=== PATIENT | female | born 1975 | race Caucasian/White ===

== ENCOUNTER → 2020-01-02 14:59 | Outpatient (CLI) | payer SELFPAY ==
[2020-01-02 17:13] LABS: Rheumatoid Factor < 8.6 IU/mL (<12.0)
[2020-01-02 17:33] LABS: TSH w/ Reflex to FT4 0.91 uIU/mL (0.47-4.68)
[2020-01-06 12:22] LABS: CCP Antibody (IgG) < 16 Units (< 20)
== END ==
PROVIDERS: Family Provider Family Medicine; PCP Family Medicine; Referring Provider Family Medicine; Visit Provider Family Medicine
DX: E03.9 Hypothyroidism, unspecified (principal); M65.4 Radial styloid tenosynovitis [de Quervain]
CPT/HCPCS: 36415; 84443; 86200; 86430

== ENCOUNTER → 2020-06-15 12:22 | Outpatient (CLI) | payer SELFPAY ==
[2020-06-15 13:17] LABS: Add Manual Diff / Slide Review NO; Basophils Absolute Auto 0 /uL (0-100); Basophils Percent Auto 0.5 % (0-2); Eosinophils Absolute Auto 100 /uL (0-450); Eosinophils Percent Auto 1.5 % (2-4); Hematocrit 39.3 % (36-46); Hemoglobin 13.1 g/dL (12.0-16.0); Lymphocytes Absolute Auto 1900 /uL (1100-4500); Lymphocytes Percent Auto 24.6 % (25-40); Mean Corpuscular HGB Conc 33.3 % (30-36); Mean Corpuscular Hemoglobin 29.7 PG (26-34); Mean Corpuscular Volume 89.2 fL (80-100); Monocytes Absolute Auto 500 /uL (0-900); Monocytes Percent Auto 6.2 % (3-14); Neutrophils Absolute Auto 5100 /uL (1500-7000); Neutrophils Percent Auto 67.2 % (50-75); Platelet Count 264 X10^3/uL (150-400); Red Blood Cell Count 4.41 X10^6/uL (4.0-5.2); Red Cell Distribution Width 13.3 % (11.6-14.8); White Blood Cell Count 7.6 X10^3/uL (4.5-11.0)
[2020-06-15 13:35] LABS: C-Reactive Protein Quant < 0.5 mg/dL (<1.0); Rheumatoid Factor < 8.6 IU/mL (<12.0)
[2020-06-15 13:42] LABS: Erythrocyte Sedimentation Rate 4 MM/HR (0-20)
[2020-06-17 15:10] LABS: ANA Screen, IFA Negative (.)
== END ==
PROVIDERS: Family Provider Family Medicine; PCP Family Medicine; Referring Provider Orthopaedic Surgery; Visit Provider Orthopaedic Surgery
DX: M25.549 Pain in joints of unspecified hand (principal)
CPT/HCPCS: 36415; 85025; 85651; 86038; 86140; 86430

== ENCOUNTER → 2020-10-21 15:30 | Outpatient (CLI) | payer SELFPAY ==
--- NOTE | 2020-10-21 15:47 | DI.RAD.S_ITS ---
PROCEDURE: XR HAND RT MIN 3V INDICATIONS: mcp stiffness and pain TECHNIQUE: 3 views of the hand(s) acquired. COMPARISON: None. FINDINGS: Bones: No fractures or dislocations. Carpal bones are normally aligned. No suspicious bony lesions. No gross bony erosion is seen. Mild osteoarthritic changes are noted along radial aspect of right wrist. Soft tissues: No suspicious soft tissue calcifications. IMPRESSION: No right hand fracture or dislocation. Mild osteoarthritic changes along radial aspect of right wrist. No gross bony erosive changes. Dictated by: Cosme Palacio M.D. on 10/21/2020 at 17:18 Approved by: Cosme Palacio M.D. on 10/21/2020 at 17:19
--- NOTE | 2020-10-21 15:47 | DI.RAD.S_ITS ---
PROCEDURE: XR HAND LT MIN 3V INDICATIONS: mcp stiffness and pain TECHNIQUE: 3 views of the hand(s) acquired. COMPARISON: [facility], CR, XR HAND RT MIN 3V, 10/21/2020, 15:54. FINDINGS: Bones: No fractures or dislocations. Mild osteoarthritic changes along radial aspect of left wrist is seen. No gross bony erosive changes are seen. Carpal bones are normally aligned. No suspicious bony lesions. Soft tissues: No suspicious soft tissue calcifications. IMPRESSION: Mild left wrist joint osteoarthritis. No fracture or dislocation. No gross bony erosion. Dictated by: Cosme Palacio M.D. on 10/21/2020 at 17:20 Approved by: Cosme Palacio M.D. on 10/21/2020 at 17:20
== END ==
PROVIDERS: Family Provider Family Medicine; PCP Family Medicine; Referring Provider Family Medicine; Visit Provider Family Medicine
DX: M25.649 Stiffness of unspecified hand, not elsewhere classified (principal); M25.541 Pain in joints of right hand; M25.542 Pain in joints of left hand; M19.042 Primary osteoarthritis, left hand
CPT/HCPCS: 73130

== ENCOUNTER → 2021-03-16 10:06 | Outpatient (CLI) | payer OTHER, SELFPAY ==
[2021-03-16 10:55] LABS: Add Manual Diff / Slide Review NO; Basophils Absolute Auto 0 /uL (0-100); Basophils Percent Auto 0.4 % (0-2); Eosinophils Absolute Auto 0 /uL (0-450); Eosinophils Percent Auto 0.3 % (2-4); Hematocrit 40.7 % (36-46); Hemoglobin 13.8 g/dL (12.0-16.0); Lymphocytes Absolute Auto 1000 /uL (1100-4500); Mean Corpuscular HGB Conc 33.9 % (30-36); Mean Corpuscular Hemoglobin 30.5 PG (26-34); Mean Corpuscular Volume 90.1 fL (80-100); Monocytes Absolute Auto 400 /uL (0-900); Monocytes Percent Auto 5.1 % (3-14); Neutrophils Absolute Auto 5500 /uL (1500-7000); Neutrophils Percent Auto 80.2 % (50-75); Platelet Count 307 X10^3/uL (150-400); Red Blood Cell Count 4.52 X10^6/uL (4.0-5.2); Red Cell Distribution Width 13.2 % (11.6-14.8); White Blood Cell Count 6.9 X10^3/uL (4.5-11.0)
[2021-03-16 11:01] LABS: Prothrombin Time 11.6 SECONDS (10.1-12.7)
[2021-03-16 11:12] LABS: Alanine Aminotransferase 17 IU/L (<35); Albumin 4.7 g/dL (3.5-5.0); Albumin Globulin Ratio 1.6 (1.0-2.8); Alkaline Phosphatase 38 U/L (38-126); Aspartate Aminotransferase 27 IU/L (14-36); BUN Creatinine Ratio 16.7 (6-22); Blood Urea Nitrogen 12 mg/dL (7-17); Calcium 9.9 mg/dL (8.4-10.2); Carbon Dioxide 27 mmol/L (22-32); Chloride 101 mmol/L (98-107); Estimated Glomerular Filt Rate > 60.0 mL/min (>60); Glucose 92 mg/dL (70-100); HEMOLYSIS < 15 (0-50); Sodium 138 mmol/L (137-145); Total Protein 7.7 g/dL (6.3-8.2)
[2021-03-16 12:43] LABS: Urine Chlamydia NOT DETECTED; Urine N gonorrhoeae NOT DETECTED
[2021-03-17 06:39] LABS: HSV 2 IGG AB < 0.91 index (0.00-0.90); RPR Screen Non Reactive (Non Reactive)
[2021-03-17 15:51] LABS: Hepatitis B Surface Antigen NEGATIVE s/c (NEGATIVE)
[2021-03-17 16:05] LABS: HIV 1 & 2 Ab/Ag 4th Gen Combo NEGATIVE (NEGATIVE); Hep C Virus Ab w/Reflex Quant NEGATIVE s/c (NEGATIVE)
[2021-03-17 19:38] LABS: HSV I/II IgM <0.91 Ratio (0.00-0.90)
== END ==
PROVIDERS: Family Provider Family Medicine; PCP Family Medicine; Referring Provider Family Medicine; Visit Provider Family Medicine
DX: A64 Unspecified sexually transmitted disease (principal); R04.0 Epistaxis
CPT/HCPCS: 36415; 80053; 85025; 85610; 86592; 86694; 86695; 86696; 86803; 87340; 87389; 87491; 87591

== ENCOUNTER → 2021-05-13 16:09 | Outpatient (CLI) | payer OTHER, SELFPAY ==
[2021-05-15 10:16] LABS: Hepatitis B Core Antibody Negative (Negative); Hepatitis B Surf Ab Qualitativ Reactive (.)
[2021-05-16 16:21] LABS: HIV 1 & 2 Ab/Ag 4th Gen Combo NEGATIVE (NEGATIVE); Hep C Virus Ab w/Reflex Quant NEGATIVE s/c (NEGATIVE); Hepatitis B Surface Antigen NEGATIVE s/c (NEGATIVE)
== END ==
PROVIDERS: Family Provider Family Medicine; PCP Family Medicine; Referring Provider Internal Medicine Rheumatology; Visit Provider Internal Medicine Rheumatology
DX: L94.0 Localized scleroderma [morphea] (principal)
CPT/HCPCS: 36415; 86704; 86706; 86803; 87340; 87389

== ENCOUNTER → 2021-06-13 12:11 | Outpatient (CLI) | payer OTHER, SELFPAY ==
[2021-06-13 13:50] LABS: Add Manual Diff / Slide Review NO; Basophils Absolute Auto 0 /uL (0-100); Basophils Percent Auto 0.5 % (0-2); Eosinophils Absolute Auto 0 /uL (0-450); Eosinophils Percent Auto 0.9 % (2-4); Hematocrit 36.2 % (36-46); Hemoglobin 12.3 g/dL (12.0-16.0); Lymphocytes Absolute Auto 1300 /uL (1100-4500); Lymphocytes Percent Auto 24.6 % (25-40); Mean Corpuscular HGB Conc 33.9 % (30-36); Mean Corpuscular Hemoglobin 30.8 PG (26-34); Mean Corpuscular Volume 91.1 fL (80-100); Monocytes Absolute Auto 400 /uL (0-900); Monocytes Percent Auto 7.4 % (3-14); Neutrophils Absolute Auto 3400 /uL (1500-7000); Neutrophils Percent Auto 66.6 % (50-75); Platelet Count 290 X10^3/uL (150-400); Red Blood Cell Count 3.98 X10^6/uL (4.0-5.2); Red Cell Distribution Width 13.2 % (11.6-14.8); White Blood Cell Count 5.1 X10^3/uL (4.5-11.0)
[2021-06-13 14:17] LABS: Alanine Aminotransferase 13 IU/L (<35); Albumin 4.3 g/dL (3.5-5.0); Albumin Globulin Ratio 1.5 (1.0-2.8); Alkaline Phosphatase 32 U/L (38-126); Aspartate Aminotransferase 25 IU/L (14-36); BUN Creatinine Ratio 12.1 (6-22); Bilirubin Total 0.8 mg/dL (0.2-1.3); Blood Urea Nitrogen 7 mg/dL (7-17); Calcium 9.4 mg/dL (8.4-10.2); Carbon Dioxide 28 mmol/L (22-32); Chloride 102 mmol/L (98-107); Estimated Glomerular Filt Rate > 60.0 mL/min (>60); Globulin 2.8 g/dL (1.7-4.1); Glucose 97 mg/dL (70-100); HEMOLYSIS < 15 (0-50); Potassium 4.4 mmol/L (3.4-5.1); Sodium 137 mmol/L (137-145); Total Protein 7.1 g/dL (6.3-8.2)
== END ==
PROVIDERS: Family Provider Family Medicine; PCP Family Medicine; Referring Provider Internal Medicine Rheumatology; Visit Provider Internal Medicine Rheumatology
DX: L94.0 Localized scleroderma [morphea] (principal)
CPT/HCPCS: 36415; 80053; 85025

== ENCOUNTER → 2021-06-18 09:47 | Outpatient (CLI) | payer OTHER, SELFPAY ==
[2021-06-18 11:11] LABS: COVID19 - ADMIT (NP swab/PCR) Negative (Negative)
== END ==
PROVIDERS: Family Provider Family Medicine; PCP Family Medicine; Referring Provider Physician Assistant; Visit Provider Physician Assistant
DX: Z20.822 Contact with and (suspected) exposure to COVID-19 (principal)
CPT/HCPCS: U0003

== ENCOUNTER 2021-06-27 20:16 | Emergency (ER) | payer OTHER, SELFPAY ==
[2021-06-27] VITALS (17 sets, daily range): BP systolic 96–117; BP diastolic 62–83; PULSE 49–73; RESP 11–22; TEMP 36.6; O2SAT 96–100
--- NOTE | 2021-06-27 20:19 | ED.PSYCH ---
HPI - Psych <Johnathan Campbell DO - Last Filed: 07/07/21 23:35> General Chief Complaint: Psychiatric Symptoms Stated Complaint: SI Time Seen by Provider: 06/27/21 20:18 History of Present Illness HPI Narrative: 45-year-old female nonsmoker with history of scleroderma presents by EMS for evaluation of an intentional overdose about 1 hour prior to arrival. She states that due to marital issues, and for the 1st time ever, she attempted to hurt herself with the intention of committing suicide by consuming a bottle of wine on along with 20 hydrocodone. She was prescribed about 40 in October. She denies any other coingestion since states she did this all at the same time at about 7 or 715pm tonight. Initially she was refusing an IV or charcoal but prior to her arrival she had consumed about 3/4 of a bottle of charcoal by her arrival. Related Data Home Medications Medication Instructions Recorded Confirmed hydroxychloroquine 200 mg tablet 200 mg PO DAILY tab 01/31/21 06/28/21 folic acid 1 mg tablet 06/28/21 Previous Rx's Medication Instructions Recorded methylphenidate HCl 5 mg tablet 10 mg PO BID #120 tab 06/27/21 Allergies Allergy/AdvReac Type Severity Reaction Status Date / Time No Known Drug Allergies Allergy Verified 04/20/21 08:53 Review of Systems <DO King Connell Last Filed: 07/07/21 23:35> Review of Systems Narrative: GENERAL: Denies chills, fatigue, malaise, fever, sweats. HEENT: Denies sinus pain, ear pain, sore throat, difficulty swallowing, dizziness. RESPIRATORY: Denies dyspnea, cough, wheezing, hemoptysis, sputum. CARDIOVASCULAR: Denies chest pain, palpitations, orthopnea, edema, GASTROINTESTINAL: Denies nausea, vomiting, abdominal pain, diarrhea, constipation, melena. : Denies dysuria, frequency, incontinence, hematuria, urinary retention. MUSCULOSKELETAL: denies weakness, joint pain, or bony pain SKIN: Denies rash, skin lesions, or other NEUROLOGIC: Denies weakness, headache, numbness, change in speech, confusion, seizures, incoordination. PSYCHIATRIC: See HPI 12 point review of systems is negative except for those stated above Patient History <DO King Connell Last Filed: 07/07/21 23:35> Medical History Abnormal glandular Pap smear of vagina (~2004) Attention deficit disorder without hyperactivity (10/12/11) Back stiffness Carpal tunnel syndrome, left De Quervain's tenosynovitis, right Generalized morphea Subdural hemorrhage (12/17/12) Surgical History History of oral surgery Family History Father Cancer Grandmother Lung cancer Mother Osteoporosis Social History Smoking Status: Never smoker alcohol intake: current substance use type: does not use Smoking Status: Never smoker Exam <Johnathan Campbell DO - Last Filed: 07/07/21 23:35> Narrative Exam Narrative: GENERAL: [45] year old patient appears stated age. Well-developed patient, in mild distress. GCS 15, guarding her airway. Charcoal in her hands on on her lips HEAD: Atraumatic. Normocephalic. EYES: Pupils equal round and reactive. Extraocular motions intact. No scleral icterus. No injection or drainage. ENT: Nose without bleeding, purulent drainage. Throat without erythema, tonsillar hypertrophy or exudate. Airway patent. NECK: Trachea midline. Non tender CARDIOVASCULAR: Regular rate and rhythm without murmurs, gallops, or rubs. RESPIRATORY: Clear to auscultation. Breath sounds equal bilaterally. No wheezes, rales, or rhonchi. GASTROINTESTINAL: Abdomen soft, non-tender, nondistended. EXTREMITIES: No edema or joint tenderness. BACK: Nontender without deformity or crepitance. No flank tenderness. NEURO: AOx3. SKIN: No rash or erythema of visible areas Initial Vital Signs Initial Vital Signs: Vital Signs Pulse Rate 73 06/27/21 20:17 Respiratory Rate 22 06/27/21 20:17 Pulse Oximetry 98 06/27/21 20:17 <Olman Mejía DO - Last Filed: 06/28/21 18:57> Initial Vital Signs Initial Vital Signs: Vital Signs Pulse Rate 73 06/27/21 20:17 Respiratory Rate 22 06/27/21 20:17 Pulse Oximetry 98 06/27/21 20:17 Course <Johnathan Campbell, DO - Last Filed: 07/07/21 23:35> Orders Ordered: Discontinued Medications Sodium Chloride (Normal Saline 0.9%) 1,000 mls @ 150 mls/hr IV CONT REJI Last Infusion: 06/27/21 22:58 Dose: 0 mls/hr Documented by: Admin: 06/27/21 20:38 Dose: 150 mls/hr Documented by: WILLI Vital Signs Vital signs: Vital Signs - 8 hr 06/28/21 11:00 06/28/21 11:15 06/28/21 11:30 Pulse Rate 66 56 L 56 L Respiratory Rate 20 19 19 Pulse Oximetry 99 100 100 06/28/21 11:45 06/28/21 12:00 06/28/21 12:15 Pulse Rate 61 64 70 Respiratory Rate 20 19 14 Pulse Oximetry 100 99 99 06/28/21 12:30 06/28/21 12:45 06/28/21 13:00 Pulse Rate 67 66 65 Respiratory Rate 14 14 29 H Pulse Oximetry 100 100 100 06/28/21 13:15 06/28/21 13:30 06/28/21 13:45 Pulse Rate 68 70 68 Respiratory Rate 19 20 23 Pulse Oximetry 100 100 <Olman Mejía, DO - Last Filed: 06/28/21 18:57> Orders Ordered: Discontinued Medications Sodium Chloride (Normal Saline 0.9%) 1,000 mls @ 150 mls/hr IV CONT REJI Last Infusion: 06/27/21 22:58 Dose: 0 mls/hr Documented by: Admin: 06/27/21 20:38 Dose: 150 mls/hr Documented by: WILLI Vital Signs Vital signs: Vital Signs - 8 hr 06/28/21 11:00 06/28/21 11:15 06/28/21 11:30 Pulse Rate 66 56 L 56 L Respiratory Rate 20 19 19 Pulse Oximetry 99 100 100 06/28/21 11:45 06/28/21 12:00 06/28/21 12:15 Pulse Rate 61 64 70 Respiratory Rate 20 19 14 Pulse Oximetry 100 99 99 06/28/21 12:30 06/28/21 12:45 06/28/21 13:00 Pulse Rate 67 66 65 Respiratory Rate 14 14 29 H Pulse Oximetry 100 100 100 06/28/21 13:15 06/28/21 13:30 06/28/21 13:45 Pulse Rate 68 70 68 Respiratory Rate 19 20 23 Pulse Oximetry 100 100 MDM - Psych <Johnathan Campbell DO - Last Filed: 07/07/21 23:35> Lab Data Result diagrams: 06/27/21 20:30 06/27/21 23:15 Labs: Lab Results 06/27/21 06/27/21 06/27/21 Range/Units 20:30 20:30 20:30 WBC 5.9 (4.5-11.0) X10^3/uL RBC 3.80 L (4.0-5.2) X10^6/uL Hgb 11.8 L (12.0-16.0) g/dL Hct 34.9 L (36-46) % MCV 91.8 (80-100) fL MCH 30.9 (26-34) PG MCHC 33.7 (30-36) % RDW 13.4 (11.6-14.8) % Plt Count 244 (150-400) X10^3/uL Neut % (Auto) 65.5 (50-75) % Lymph % (Auto) 26.7 (25-40) % Reeves % (Auto) 5.6 (3-14) % Eos % (Auto) 1.7 L (2-4) % Baso % (Auto) 0.5 (0-2) % Neut # (Auto) 3900 (6593-2417) /uL Lymph # (Auto) 1600 (8111-7414) /uL Reeves # (Auto) 300 (0-900) /uL Eos # (Auto) 100 (0-450) /uL Baso # (Auto) 0 (0-100) /uL Sodium 139 (137-145) mmol/L Potassium 3.6 (3.4-5.1) mmol/L Chloride 106 (98-107) mmol/L Carbon Dioxide 24 (22-32) mmol/L BUN 6 L (7-17) mg/dL Creatinine 0.55 (0.52-1.04) mg/dL Estimated GFR > 60.0 (>60) mL/min BUN/Creatinine Ratio 10.9 (6-22) Glucose 96 (70-100) mg/dL Lactate 1.9 (0.7-2.1) mmol/L Calcium 8.9 (8.4-10.2) mg/dL Magnesium (1.6-2.3) mg/dL Total Bilirubin 0.6 (0.2-1.3) mg/dL Conjugated Bilirubin 0.0 (0.0-0.3) md/dL Unconjugated Bilirubin 0.6 (0.0-1.1) mg/dL AST 25 (14-36) IU/L ALT 14 (<35) IU/L Alkaline Phosphatase 31 L (38-126) U/L Total Creatine Kinase (30-135) U/L CK-MB (CK-2) CK-MB (CK-2) Rel Index Troponin I (0.01-0.034) ng/mL Total Protein 6.8 (6.3-8.2) g/dL Albumin 4.1 (3.5-5.0) g/dL Globulin 2.7 (1.7-4.1) g/dL Albumin/Globulin Ratio 1.5 (1.0-2.8) TSH (0.47-4.68) uIU/mL Free T4 (0.78-2.19) ng/dL Urine Color Urine Appearance Urine pH (4.5-8.0) Ur Specific [place] (1.000-1.035) Urine Protein (Negative) Urine Glucose (UA) (Negative) g/dL Urine Ketones (NEGATIVE) Urine Occult Blood (Negative) Urine Nitrate (Negative) Urine Bilirubin (NEGATIVE) Urine Urobilinogen (0.2) E.U./dL Ur Leukocyte Esterase (NEGATIVE) Urine RBC (0-5/HPF) Urine WBC (0-5/HPF) Urine Bacteria (None) Ur Culture Indicated? Salicylates < 1.0 (<20) mg/dL U Opiates 300ng/mL cut (Negative) Ur Oxycodone Screen (Negative) Urine Methadone Screen (Negative) Acetaminophen 37 H (10-30) ug/mL Ur Barbiturates Screen (Negative) U Tricyclic Antidepress (Negative) Ur Phencyclidine Scrn (Negative) Ur Amphetamines Screen (Negative) U Methamphetamines Scrn (Negative) Ur MDMA Scrn (Ecstasy) (Negative) U Benzodiazepines Scrn (Negative) Urine Cocaine Screen (Negative) U Marijuana (THC) Screen (Negative) Ethyl Alcohol 155 H ( - 10) mg/dL SARS-CoV-2 (PCR) (Negative) 06/27/21 06/27/21 06/27/21 Range/Units 21:06 21:36 21:36 WBC (4.5-11.0) X10^3/uL RBC (4.0-5.2) X10^6/uL Hgb (12.0-16.0) g/dL Hct (36-46) % MCV (80-100) fL MCH (26-34) PG MCHC (30-36) % RDW (11.6-14.8) % Plt Count (150-400) X10^3/uL Neut % (Auto) (50-75) % Lymph % (Auto) (25-40) % Reeves % (Auto) (3-14) % Eos % (Auto) (2-4) % Baso % (Auto) (0-2) % Neut # (Auto) (5631-5609) /uL Lymph # (Auto) (2950-3079) /uL Reeves # (Auto) (0-900) /uL Eos # (Auto) (0-450) /uL Baso # (Auto) (0-100) /uL Sodium (137-145) mmol/L Potassium (3.4-5.1) mmol/L Chloride (98-107) mmol/L Carbon Dioxide (22-32) mmol/L BUN (7-17) mg/dL Creatinine (0.52-1.04) mg/dL Estimated GFR (>60) mL/min BUN/Creatinine Ratio (6-22) Glucose (70-100) mg/dL Lactate (0.7-2.1) mmol/L Calcium (8.4-10.2) mg/dL Magnesium (1.6-2.3) mg/dL Total Bilirubin (0.2-1.3) mg/dL Conjugated Bilirubin (0.0-0.3) md/dL Unconjugated Bilirubin (0.0-1.1) mg/dL AST (14-36) IU/L ALT (<35) IU/L Alkaline Phosphatase (38-126) U/L Total Creatine Kinase (30-135) U/L CK-MB (CK-2) CK-MB (CK-2) Rel Index Troponin I (0.01-0.034) ng/mL Total Protein (6.3-8.2) g/dL Albumin (3.5-5.0) g/dL Globulin (1.7-4.1) g/dL Albumin/Globulin Ratio (1.0-2.8) TSH (0.47-4.68) uIU/mL Free T4 (0.78-2.19) ng/dL Urine Color Yellow Urine Appearance Clear Urine pH 5.5 (4.5-8.0) Ur Specific [place] <=1.005 (1.000-1.035) Urine Protein Negative (Negative) Urine Glucose (UA) Negative (Negative) g/dL Urine Ketones Negative (NEGATIVE) Urine Occult Blood Negative (Negative) Urine Nitrate Negative (Negative) Urine Bilirubin Negative (NEGATIVE) Urine Urobilinogen 0.2 (0.2) E.U./dL Ur Leukocyte Esterase Negative (NEGATIVE) Urine RBC None seen (0-5/HPF) Urine WBC None seen (0-5/HPF) Urine Bacteria None seen (None) Ur Culture Indicated? Cult not indicated Salicylates (<20) mg/dL U Opiates 300ng/mL cut Positive H (Negative) Ur Oxycodone Screen Negative (Negative) Urine Methadone Screen Negative (Negative) Acetaminophen (10-30) ug/mL Ur Barbiturates Screen Negative (Negative) U Tricyclic Antidepress Negative (Negative) Ur Phencyclidine Scrn Negative (Negative) Ur Amphetamines Screen Negative (Negative) U Methamphetamines Scrn Negative (Negative) Ur MDMA Scrn (Ecstasy) Negative (Negative) U Benzodiazepines Scrn Negative (Negative) Urine Cocaine Screen Negative (Negative) U Marijuana (THC) Screen Negative (Negative) Ethyl Alcohol ( - 10) mg/dL SARS-CoV-2 (PCR) Negative (Negative) 06/27/21 06/28/21 06/28/21 Range/Units 23:15 07:30 17:21 WBC (4.5-11.0) X10^3/uL RBC (4.0-5.2) X10^6/uL Hgb (12.0-16.0) g/dL Hct (36-46) % MCV (80-100) fL MCH (26-34) PG MCHC (30-36) % RDW (11.6-14.8) % Plt Count (150-400) X10^3/uL Neut % (Auto) (50-75) % Lymph % (Auto) (25-40) % Reeves % (Auto) (3-14) % Eos % (Auto) (2-4) % Baso % (Auto) (0-2) % Neut # (Auto) (7551-1507) /uL Lymph # (Auto) (3227-4178) /uL Reeves # (Auto) (0-900) /uL Eos # (Auto) (0-450) /uL Baso # (Auto) (0-100) /uL Sodium 141 (137-145) mmol/L Potassium 3.9 (3.4-5.1) mmol/L Chloride 109 H (98-107) mmol/L Carbon Dioxide 26 (22-32) mmol/L BUN 6 L (7-17) mg/dL Creatinine 0.53 (0.52-1.04) mg/dL Estimated GFR > 60.0 (>60) mL/min BUN/Creatinine Ratio 11.3 (6-22) Glucose 83 (70-100) mg/dL Lactate (0.7-2.1) mmol/L Calcium 8.4 (8.4-10.2) mg/dL Magnesium (1.6-2.3) mg/dL Total Bilirubin 0.5 (0.2-1.3) mg/dL Conjugated Bilirubin (0.0-0.3) md/dL Unconjugated Bilirubin (0.0-1.1) mg/dL AST 23 (14-36) IU/L ALT 13 (<35) IU/L Alkaline Phosphatase 28 L (38-126) U/L Total Creatine Kinase (30-135) U/L CK-MB (CK-2) CK-MB (CK-2) Rel Index Troponin I (0.01-0.034) ng/mL Total Protein 6.2 L (6.3-8.2) g/dL Albumin 3.8 (3.5-5.0) g/dL Globulin 2.4 (1.7-4.1) g/dL Albumin/Globulin Ratio 1.6 (1.0-2.8) TSH 4.76 H (0.47-4.68) uIU/mL Free T4 1.28 (0.78-2.19) ng/dL Urine Color Urine Appearance Urine pH (4.5-8.0) Ur Specific [place] (1.000-1.035) Urine Protein (Negative) Urine Glucose (UA) (Negative) g/dL Urine Ketones (NEGATIVE) Urine Occult Blood (Negative) Urine Nitrate (Negative) Urine Bilirubin (NEGATIVE) Urine Urobilinogen (0.2) E.U./dL Ur Leukocyte Esterase (NEGATIVE) Urine RBC (0-5/HPF) Urine WBC (0-5/HPF) Urine Bacteria (None) Ur Culture Indicated? Salicylates (<20) mg/dL U Opiates 300ng/mL cut (Negative) Ur Oxycodone Screen (Negative) Urine Methadone Screen (Negative) Acetaminophen 24 (10-30) ug/mL Ur Barbiturates Screen (Negative) U Tricyclic Antidepress (Negative) Ur Phencyclidine Scrn (Negative) Ur Amphetamines Screen (Negative) U Methamphetamines Scrn (Negative) Ur MDMA Scrn (Ecstasy) (Negative) U Benzodiazepines Scrn (Negative) Urine Cocaine Screen (Negative) U Marijuana (THC) Screen (Negative) Ethyl Alcohol < 10 ( - 10) mg/dL SARS-CoV-2 (PCR) (Negative) 06/28/21 Range/Units 17:22 WBC (4.5-11.0) X10^3/uL RBC (4.0-5.2) X10^6/uL Hgb (12.0-16.0) g/dL Hct (36-46) % MCV (80-100) fL MCH (26-34) PG MCHC (30-36) % RDW (11.6-14.8) % Plt Count (150-400) X10^3/uL Neut % (Auto) (50-75) % Lymph % (Auto) (25-40) % Reeves % (Auto) (3-14) % Eos % (Auto) (2-4) % Baso % (Auto) (0-2) % Neut # (Auto) (8509-3826) /uL Lymph # (Auto) (5677-1926) /uL Reeves # (Auto) (0-900) /uL Eos # (Auto) (0-450) /uL Baso # (Auto) (0-100) /uL Sodium (137-145) mmol/L Potassium (3.4-5.1) mmol/L Chloride (98-107) mmol/L Carbon Dioxide (22-32) mmol/L BUN (7-17) mg/dL Creatinine (0.52-1.04) mg/dL Estimated GFR (>60) mL/min BUN/Creatinine Ratio (6-22) Glucose (70-100) mg/dL Lactate (0.7-2.1) mmol/L Calcium (8.4-10.2) mg/dL Magnesium 2.1 (1.6-2.3) mg/dL Total Bilirubin (0.2-1.3) mg/dL Conjugated Bilirubin (0.0-0.3) md/dL Unconjugated Bilirubin (0.0-1.1) mg/dL AST (14-36) IU/L ALT (<35) IU/L Alkaline Phosphatase (38-126) U/L Total Creatine Kinase 44 (30-135) U/L CK-MB (CK-2) TNP CK-MB (CK-2) Rel Index TNP Troponin I < 0.012 (0.01-0.034) ng/mL Total Protein (6.3-8.2) g/dL Albumin (3.5-5.0) g/dL Globulin (1.7-4.1) g/dL Albumin/Globulin Ratio (1.0-2.8) TSH (0.47-4.68) uIU/mL Free T4 (0.78-2.19) ng/dL Urine Color Urine Appearance Urine pH (4.5-8.0) Ur Specific [place] (1.000-1.035) Urine Protein (Negative) Urine Glucose (UA) (Negative) g/dL Urine Ketones (NEGATIVE) Urine Occult Blood (Negative) Urine Nitrate (Negative) Urine Bilirubin (NEGATIVE) Urine Urobilinogen (0.2) E.U./dL Ur Leukocyte Esterase (NEGATIVE) Urine RBC (0-5/HPF) Urine WBC (0-5/HPF) Urine Bacteria (None) Ur Culture Indicated? Salicylates (<20) mg/dL U Opiates 300ng/mL cut (Negative) Ur Oxycodone Screen (Negative) Urine Methadone Screen (Negative) Acetaminophen (10-30) ug/mL Ur Barbiturates Screen (Negative) U Tricyclic Antidepress (Negative) Ur Phencyclidine Scrn (Negative) Ur Amphetamines Screen (Negative) U Methamphetamines Scrn (Negative) Ur MDMA Scrn (Ecstasy) (Negative) U Benzodiazepines Scrn (Negative) Urine Cocaine Screen (Negative) U Marijuana (THC) Screen (Negative) Ethyl Alcohol ( - 10) mg/dL SARS-CoV-2 (PCR) (Negative) MDM Narrative Medical decision making narrative: patient resting comfortably. 4 hour acetaminophen well below the cutoff for NAC. Total dose well below expected toxic levels. Patient easily aroused. Patient informed of plan to keep for [employer] consultation given her suicide attempt tonight. <Olman Alfonzo, DO - Last Filed: 06/28/21 18:57> Lab Data Labs: Lab Results 06/27/21 06/27/21 06/27/21 Range/Units 20:30 20:30 20:30 WBC 5.9 (4.5-11.0) X10^3/uL RBC 3.80 L (4.0-5.2) X10^6/uL Hgb 11.8 L (12.0-16.0) g/dL Hct 34.9 L (36-46) % MCV 91.8 (80-100) fL MCH 30.9 (26-34) PG MCHC 33.7 (30-36) % RDW 13.4 (11.6-14.8) % Plt Count 244 (150-400) X10^3/uL Neut % (Auto) 65.5 (50-75) % Lymph % (Auto) 26.7 (25-40) % Reeves % (Auto) 5.6 (3-14) % Eos % (Auto) 1.7 L (2-4) % Baso % (Auto) 0.5 (0-2) % Neut # (Auto) 3900 (2401-1067) /uL Lymph # (Auto) 1600 (4463-1022) /uL Reeves # (Auto) 300 (0-900) /uL Eos # (Auto) 100 (0-450) /uL Baso # (Auto) 0 (0-100) /uL Sodium 139 (137-145) mmol/L Potassium 3.6 (3.4-5.1) mmol/L Chloride 106 (98-107) mmol/L Carbon Dioxide 24 (22-32) mmol/L BUN 6 L (7-17) mg/dL Creatinine 0.55 (0.52-1.04) mg/dL Estimated GFR > 60.0 (>60) mL/min BUN/Creatinine Ratio 10.9 (6-22) Glucose 96 (70-100) mg/dL Lactate 1.9 (0.7-2.1) mmol/L Calcium 8.9 (8.4-10.2) mg/dL Magnesium (1.6-2.3) mg/dL Total Bilirubin 0.6 (0.2-1.3) mg/dL Conjugated Bilirubin 0.0 (0.0-0.3) md/dL Unconjugated Bilirubin 0.6 (0.0-1.1) mg/dL AST 25 (14-36) IU/L ALT 14 (<35) IU/L Alkaline Phosphatase 31 L (38-126) U/L Total Creatine Kinase (30-135) U/L CK-MB (CK-2) CK-MB (CK-2) Rel Index Troponin I (0.01-0.034) ng/mL Total Protein 6.8 (6.3-8.2) g/dL Albumin 4.1 (3.5-5.0) g/dL Globulin 2.7 (1.7-4.1) g/dL Albumin/Globulin Ratio 1.5 (1.0-2.8) TSH (0.47-4.68) uIU/mL Free T4 (0.78-2.19) ng/dL Urine Color Urine Appearance Urine pH (4.5-8.0) Ur Specific [place] (1.000-1.035) Urine Protein (Negative) Urine Glucose (UA) (Negative) g/dL Urine Ketones (NEGATIVE) Urine Occult Blood (Negative) Urine Nitrate (Negative) Urine Bilirubin (NEGATIVE) Urine Urobilinogen (0.2) E.U./dL Ur Leukocyte Esterase (NEGATIVE) Urine RBC (0-5/HPF) Urine WBC (0-5/HPF) Urine Bacteria (None) Ur Culture Indicated? Salicylates < 1.0 (<20) mg/dL U Opiates 300ng/mL cut (Negative) Ur Oxycodone Screen (Negative) Urine Methadone Screen (Negative) Acetaminophen 37 H (10-30) ug/mL Ur Barbiturates Screen (Negative) U Tricyclic Antidepress (Negative) Ur Phencyclidine Scrn (Negative) Ur Amphetamines Screen (Negative) U Methamphetamines Scrn (Negative) Ur MDMA Scrn (Ecstasy) (Negative) U Benzodiazepines Scrn (Negative) Urine Cocaine Screen (Negative) U Marijuana (THC) Screen (Negative) Ethyl Alcohol 155 H ( - 10) mg/dL SARS-CoV-2 (PCR) (Negative) 06/27/21 06/27/21 06/27/21 Range/Units 21:06 21:36 21:36 WBC (4.5-11.0) X10^3/uL RBC (4.0-5.2) X10^6/uL Hgb (12.0-16.0) g/dL Hct (36-46) % MCV (80-100) fL MCH (26-34) PG MCHC (30-36) % RDW (11.6-14.8) % Plt Count (150-400) X10^3/uL Neut % (Auto) (50-75) % Lymph % (Auto) (25-40) % Reeves % (Auto) (3-14) % Eos % (Auto) (2-4) % Baso % (Auto) (0-2) % Neut # (Auto) (9520-7237) /uL Lymph # (Auto) (7381-2112) /uL [place]eves # (Auto) (0-900) /uL Eos # (Auto) (0-450) /uL Baso # (Auto) (0-100) /uL Sodium (137-145) mmol/L Potassium (3.4-5.1) mmol/L Chloride (98-107) mmol/L Carbon Dioxide (22-32) mmol/L BUN (7-17) mg/dL Creatinine (0.52-1.04) mg/dL Estimated GFR (>60) mL/min BUN/Creatinine Ratio (6-22) Glucose (70-100) mg/dL Lactate (0.7-2.1) mmol/L Calcium (8.4-10.2) mg/dL Magnesium (1.6-2.3) mg/dL Total Bilirubin (0.2-1.3) mg/dL Conjugated Bilirubin (0.0-0.3) md/dL Unconjugated Bilirubin (0.0-1.1) mg/dL AST (14-36) IU/L ALT (<35) IU/L Alkaline Phosphatase (38-126) U/L Total Creatine Kinase (30-135) U/L CK-MB (CK-2) CK-MB (CK-2) Rel Index Troponin I (0.01-0.034) ng/mL Total Protein (6.3-8.2) g/dL Albumin (3.5-5.0) g/dL Globulin (1.7-4.1) g/dL Albumin/Globulin Ratio (1.0-2.8) TSH (0.47-4.68) uIU/mL Free T4 (0.78-2.19) ng/dL Urine Color Yellow Urine Appearance Clear Urine pH 5.5 (4.5-8.0) Ur Specific [place] <=1.005 (1.000-1.035) Urine Protein Negative (Negative) Urine Glucose (UA) Negative (Negative) g/dL Urine Ketones Negative (NEGATIVE) Urine Occult Blood Negative (Negative) Urine Nitrate Negative (Negative) Urine Bilirubin Negative (NEGATIVE) Urine Urobilinogen 0.2 (0.2) E.U./dL Ur Leukocyte Esterase Negative (NEGATIVE) Urine RBC None seen (0-5/HPF) Urine WBC None seen (0-5/HPF) Urine Bacteria None seen (None) Ur Culture Indicated? Cult not indicated Salicylates (<20) mg/dL U Opiates 300ng/mL cut Positive H (Negative) Ur Oxycodone Screen Negative (Negative) Urine Methadone Screen Negative (Negative) Acetaminophen (10-30) ug/mL Ur Barbiturates Screen Negative (Negative) U Tricyclic Antidepress Negative (Negative) Ur Phencyclidine Scrn Negative (Negative) Ur Amphetamines Screen Negative (Negative) U Methamphetamines Scrn Negative (Negative) Ur MDMA Scrn (Ecstasy) Negative (Negative) U Benzodiazepines Scrn Negative (Negative) Urine Cocaine Screen Negative (Negative) U Marijuana (THC) Screen Negative (Negative) Ethyl Alcohol ( - 10) mg/dL SARS-CoV-2 (PCR) Negative (Negative) 06/27/21 06/28/21 06/28/21 Range/Units 23:15 07:30 17:21 WBC (4.5-11.0) X10^3/uL RBC (4.0-5.2) X10^6/uL Hgb (12.0-16.0) g/dL Hct (36-46) % MCV (80-100) fL MCH (26-34) PG MCHC (30-36) % RDW (11.6-14.8) % Plt Count (150-400) X10^3/uL Neut % (Auto) (50-75) % Lymph % (Auto) (25-40) % [place]eves % (Auto) (3-14) % Eos % (Auto) (2-4) % Baso % (Auto) (0-2) % Neut # (Auto) (2331-4468) /uL Lymph # (Auto) (9699-1940) /uL Reeves # (Auto) (0-900) /uL Eos # (Auto) (0-450) /uL Baso # (Auto) (0-100) /uL Sodium 141 (137-145) mmol/L Potassium 3.9 (3.4-5.1) mmol/L Chloride 109 H (98-107) mmol/L Carbon Dioxide 26 (22-32) mmol/L BUN 6 L (7-17) mg/dL Creatinine 0.53 (0.52-1.04) mg/dL Estimated GFR > 60.0 (>60) mL/min BUN/Creatinine Ratio 11.3 (6-22) Glucose 83 (70-100) mg/dL Lactate (0.7-2.1) mmol/L Calcium 8.4 (8.4-10.2) mg/dL Magnesium (1.6-2.3) mg/dL Total Bilirubin 0.5 (0.2-1.3) mg/dL Conjugated Bilirubin (0.0-0.3) md/dL Unconjugated Bilirubin (0.0-1.1) mg/dL AST 23 (14-36) IU/L ALT 13 (<35) IU/L Alkaline Phosphatase 28 L (38-126) U/L Total Creatine Kinase (30-135) U/L CK-MB (CK-2) CK-MB (CK-2) Rel Index Troponin I (0.01-0.034) ng/mL Total Protein 6.2 L (6.3-8.2) g/dL Albumin 3.8 (3.5-5.0) g/dL Globulin 2.4 (1.7-4.1) g/dL Albumin/Globulin Ratio 1.6 (1.0-2.8) TSH 4.76 H (0.47-4.68) uIU/mL Free T4 1.28 (0.78-2.19) ng/dL Urine Color Urine Appearance Urine pH (4.5-8.0) Ur Specific [place] (1.000-1.035) Urine Protein (Negative) Urine Glucose (UA) (Negative) g/dL Urine Ketones (NEGATIVE) Urine Occult Blood (Negative) Urine Nitrate (Negative) Urine Bilirubin (NEGATIVE) Urine Urobilinogen (0.2) E.U./dL Ur Leukocyte Esterase (NEGATIVE) Urine RBC (0-5/HPF) Urine WBC (0-5/HPF) Urine Bacteria (None) Ur Culture Indicated? Salicylates (<20) mg/dL U Opiates 300ng/mL cut (Negative) Ur Oxycodone Screen (Negative) Urine Methadone Screen (Negative) Acetaminophen 24 (10-30) ug/mL Ur Barbiturates Screen (Negative) U Tricyclic Antidepress (Negative) Ur Phencyclidine Scrn (Negative) Ur Amphetamines Screen (Negative) U Methamphetamines Scrn (Negative) Ur MDMA Scrn (Ecstasy) (Negative) U Benzodiazepines Scrn (Negative) Urine Cocaine Screen (Negative) U Marijuana (THC) Screen (Negative) Ethyl Alcohol < 10 ( - 10) mg/dL SARS-CoV-2 (PCR) (Negative) 06/28/21 Range/Units 17:22 WBC (4.5-11.0) X10^3/uL RBC (4.0-5.2) X10^6/uL Hgb (12.0-16.0) g/dL Hct (36-46) % MCV (80-100) fL MCH (26-34) PG MCHC (30-36) % RDW (11.6-14.8) % Plt Count (150-400) X10^3/uL Neut % (Auto) (50-75) % Lymph % (Auto) (25-40) % Reeves % (Auto) (3-14) % Eos % (Auto) (2-4) % Baso % (Auto) (0-2) % Neut # (Auto) (1731-1440) /uL Lymph # (Auto) (8406-4931) /uL Reeves # (Auto) (0-900) /uL Eos # (Auto) (0-450) /uL Baso # (Auto) (0-100) /uL Sodium (137-145) mmol/L Potassium (3.4-5.1) mmol/L Chloride (98-107) mmol/L Carbon Dioxide (22-32) mmol/L BUN (7-17) mg/dL Creatinine (0.52-1.04) mg/dL Estimated GFR (>60) mL/min BUN/Creatinine Ratio (6-22) Glucose (70-100) mg/dL Lactate (0.7-2.1) mmol/L Calcium (8.4-10.2) mg/dL Magnesium 2.1 (1.6-2.3) mg/dL Total Bilirubin (0.2-1.3) mg/dL Conjugated Bilirubin (0.0-0.3) md/dL Unconjugated Bilirubin (0.0-1.1) mg/dL AST (14-36) IU/L ALT (<35) IU/L Alkaline Phosphatase (38-126) U/L Total Creatine Kinase 44 (30-135) U/L CK-MB (CK-2) TNP CK-MB (CK-2) Rel Index TNP Troponin I < 0.012 (0.01-0.034) ng/mL Total Protein (6.3-8.2) g/dL Albumin (3.5-5.0) g/dL Globulin (1.7-4.1) g/dL Albumin/Globulin Ratio (1.0-2.8) TSH (0.47-4.68) uIU/mL Free T4 (0.78-2.19) ng/dL Urine Color Urine Appearance Urine pH (4.5-8.0) Ur Specific [place] (1.000-1.035) Urine Protein (Negative) Urine Glucose (UA) (Negative) g/dL Urine Ketones (NEGATIVE) Urine Occult Blood (Negative) Urine Nitrate (Negative) Urine Bilirubin (NEGATIVE) Urine Urobilinogen (0.2) E.U./dL Ur Leukocyte Esterase (NEGATIVE) Urine RBC (0-5/HPF) Urine WBC (0-5/HPF) Urine Bacteria (None) Ur Culture Indicated? Salicylates (<20) mg/dL U Opiates 300ng/mL cut (Negative) Ur Oxycodone Screen (Negative) Urine Methadone Screen (Negative) Acetaminophen (10-30) ug/mL Ur Barbiturates Screen (Negative) U Tricyclic Antidepress (Negative) Ur Phencyclidine Scrn (Negative) Ur Amphetamines Screen (Negative) U Methamphetamines Scrn (Negative) Ur MDMA Scrn (Ecstasy) (Negative) U Benzodiazepines Scrn (Negative) Urine Cocaine Screen (Negative) U Marijuana (THC) Screen (Negative) Ethyl Alcohol ( - 10) mg/dL SARS-CoV-2 (PCR) (Negative) ECG Data Attestation: I personally reviewed and interpreted this ECG as follows: Interpretation: Sinus rhythm Ventricular rate is 61 Normal axis Normal QRS Normal QTC No ST T wave changes MDM Narrative Medical decision making narrative: patient resting comfortably. 4 hour acetaminophen well below the cutoff for NAC. Total dose well below expected toxic levels. Patient easily aroused. Patient informed of plan to keep for TAPE DECK INSTALLER consultation given her suicide attempt tonight. Dr mejía: Received turned over. Reviewed patient's history and physical and labs up to this point. Patient has been medically cleared. Patient has been seen by social work. Additional labs and EKG ordered per the request of potential receiving facility. She continues to remain symptom free. Patient was accepted at mental health facility. She is voluntary. Will be transported for further evaluation and treatment. Patient is stable for transfer. Discharge Plan Departure Patient Disposition: Xfer Psychiatric Hosp Clinical Impression: Suicide ideation, Alcohol intoxication, Drug overdose, intentional Referrals: Iman Larios DO [Primary Care Provider] -
[2021-06-27 20:35] LABS: Add Manual Diff / Slide Review NO; Basophils Absolute Auto 0 /uL (0-100); Basophils Percent Auto 0.5 % (0-2); Eosinophils Absolute Auto 100 /uL (0-450); Eosinophils Percent Auto 1.7 % (2-4); Hematocrit 34.9 % (36-46); Hemoglobin 11.8 g/dL (12.0-16.0); Lymphocytes Absolute Auto 1600 /uL (1100-4500); Lymphocytes Percent Auto 26.7 % (25-40); Mean Corpuscular HGB Conc 33.7 % (30-36); Mean Corpuscular Hemoglobin 30.9 PG (26-34); Mean Corpuscular Volume 91.8 fL (80-100); Monocytes Absolute Auto 300 /uL (0-900); Monocytes Percent Auto 5.6 % (3-14); Neutrophils Absolute Auto 3900 /uL (1500-7000); Neutrophils Percent Auto 65.5 % (50-75); Platelet Count 244 X10^3/uL (150-400); Red Cell Distribution Width 13.4 % (11.6-14.8); White Blood Cell Count 5.9 X10^3/uL (4.5-11.0)
--- NOTE | 2021-06-27 20:35 | PC.NURSE ---
pt was able to ingest about 5 oz of 8 oz of activated charcoal. denies nausea and no vomiting at this time. vitals remain WNL
[2021-06-27] MEDS: SODIUM CHLORIDE 0.9% 1,000 ML 150 ML IV (20:38)
[2021-06-27 20:47] LABS: Lactate (Lactic Acid) 1.9 mmol/L (0.7-2.1)
[2021-06-27 20:49] LABS: Acetaminophen 37 ug/mL (10-30); Alanine Aminotransferase 14 IU/L (<35); Albumin 4.1 g/dL (3.5-5.0); Albumin Globulin Ratio 1.5 (1.0-2.8); Alkaline Phosphatase 31 U/L (38-126); Aspartate Aminotransferase 25 IU/L (14-36); BUN Creatinine Ratio 10.9 (6-22); Bilirubin Total 0.6 mg/dL (0.2-1.3); Bilirubin Unconjugated 0.6 mg/dL (0.0-1.1); Blood Urea Nitrogen 6 mg/dL (7-17); Calcium 8.9 mg/dL (8.4-10.2); Carbon Dioxide 24 mmol/L (22-32); Chloride 106 mmol/L (98-107); Estimated Glomerular Filt Rate > 60.0 mL/min (>60); Ethanol (ETOH) 155 mg/dL; Globulin 2.7 g/dL (1.7-4.1); Glucose 96 mg/dL (70-100); HEMOLYSIS < 15 (0-50); Potassium 3.6 mmol/L (3.4-5.1); Salicylate < 1.0 mg/dL (<20); Sodium 139 mmol/L (137-145); Total Protein 6.8 g/dL (6.3-8.2)
--- NOTE | 2021-06-27 21:28 | PC.NURSE ---
Pt ambulated to the restroom with a steady gait
[2021-06-27 21:44] LABS: Bacteria Urine None Seen; RBC Urine None Seen (0-5/HPF); WBC Urine None Seen (0-5/HPF)
[2021-06-27 21:47] LABS: Appearance Urine UA CLEAR; Bilirubin Urine UA NEGATIVE (NEGATIVE); Color Urine UA YELLOW; Glucose Urine UA NEGATIVE (Negative); Ketones Urine UA NEGATIVE (NEGATIVE); Leukocyte Esterase Urine UA NEGATIVE (NEGATIVE); Nitrite Urine UA NEGATIVE (Negative); Occult Blood Urine UA NEGATIVE (Negative); Protein Urine UA NEGATIVE (Negative); Specific Gravity Urine UA <=1.005 (1.000-1.035); Urobilinogen Urine UA 0.2 E.U./dL (0.2)
[2021-06-27 21:49] LABS: pH Urine UA 5.5 (4.5-8.0)
[2021-06-27 21:55] LABS: Culture Indicated Urine Cult Not Indicated
[2021-06-27 21:56] LABS: UR Morphine/Opiate cutoff 300 Positive (Negative); Ur Creatinine 20 (Normal); Ur Specific Gravity 1.015 (Normal); Urine Amphetamines Negative (Negative); Urine Barbiturates Negative (Negative); Urine Benzodiazepines Negative (Negative); Urine Cocaine Negative (Negative); Urine MDMA Negative (Negative); Urine Methadone Negative (Negative); Urine Methamphetamines Negative (Negative); Urine Oxycodone Negative (Negative); Urine Phencyclidine Negative (Negative); Urine Tetrahydrocannabinol Negative (Negative); Urine Tricyclic Antidepressant Negative (Negative); Urine pH 5 (Normal)
[2021-06-27 22:06] LABS: COVID19 - ADMIT (NP swab/PCR) Negative (Negative)
--- NOTE | 2021-06-27 22:16 | PC.NURSE ---
Pt's at bedside
[2021-06-27 23:34] LABS: Alanine Aminotransferase 13 IU/L (<35); Albumin 3.8 g/dL (3.5-5.0); Albumin Globulin Ratio 1.6 (1.0-2.8); Alkaline Phosphatase 28 U/L (38-126); Aspartate Aminotransferase 23 IU/L (14-36); BUN Creatinine Ratio 11.3 (6-22); Bilirubin Total 0.5 mg/dL (0.2-1.3); Blood Urea Nitrogen 6 mg/dL (7-17); Calcium 8.4 mg/dL (8.4-10.2); Carbon Dioxide 26 mmol/L (22-32); Chloride 109 mmol/L (98-107); Estimated Glomerular Filt Rate > 60.0 mL/min (>60); Globulin 2.4 g/dL (1.7-4.1); Glucose 83 mg/dL (70-100); HEMOLYSIS < 15 (0-50); Potassium 3.9 mmol/L (3.4-5.1); Sodium 141 mmol/L (137-145); Total Protein 6.2 g/dL (6.3-8.2)
[2021-06-27 23:40] LABS: Acetaminophen 24 ug/mL (10-30)
[2021-06-28] VITALS (60 sets, daily range): BP systolic 88–124; BP diastolic 55–80; PULSE 48–81; RESP 12–35; O2SAT 96–100
[2021-06-28 07:51] LABS: Ethanol (ETOH) < 10 mg/dL
--- NOTE | 2021-06-28 08:08 | PC.NURSE ---
pt sitting up in bed eating breakfast tray. at bedside. appears well in NAD.
--- NOTE | 2021-06-28 13:36 | CM.SWNOTE ---
INSURANCE OFFICE SUPERVISOR Assessment INSURANCE OFFICE SUPERVISOR - Concrete Mixing Truck Driver Assessment INSURANCE OFFICE SUPERVISOR/Concrete Mixing Truck Driver Assessment Time Spent with Patient Start date 06/28/21 Visit Start Time 12:05 End date 06/28/21 Visit End Time 12:45 Total time Care Management spent on 40 patient visit-in minutes Mental Health Screening Include Onset, Duration, Intensity Presenting Problem Patient presents to ED via EMS last evening after suicide attempt taking 20 hydrocodone and drinking a bottle of wine. Precipitating Event(s) Patient endorses her 's infidelity and lying about it , going through a messy divorce and having an walking dragline operator who is not supportive. Patient is also overwhelmed and stressed by being the primary parent to her two children, managing her health and going back to work soon. Patient Strengths Patient shows insight Current Behavioral Health Provider(s) Patient just ended sessions Include Facility, Provider, Ph. # with Dr. Yfn Garrett (Ph. # [phone]) on 06/16/21, patient states that she graduated from counseling Psych. Hx Mental Health and Chemical No hx of diagnoses. Dependency Patient denies substance use and denies regular ETOH use. Family Hx of Behavioral Abuse 's infidelity and patient's son blaming patient. Psychiatric Hospitalizations (date(s)/ No hx location) Psychosocial information & Support Patient is 45 y/o female, Systems mother of two children who resides in [place]. Patient endorses that she is her and has leaned on her friends a lot in the last year and could not identify current supports. School/Work Teacher at [employer] Legal Concerns Legal Matters - Outstanding Issues Patient is currently going through a divorce Mental Status Orientation (Person/Place/Time) A/Ox4 Stated Mood tired and exhausted Affect (Congruent with Mood?) dysphoric, full range, congruent with mood Thought Content - Specify/Describe Patient does not endorse Obsessions, Delusions, Hallucinations thought content Thought Processes (Wnppsin-Uutjkxom-Ewcs Coherent Qenjwphz-Tzqrpfql-Uknyaxyksl- Kkhbufbooegbkq-Juvkvuk-Ddanljfpumry- Thought Blocking) Speech (Qqmmvn-Tnwo-Lyohjlm-Rapid-Soft- Normal, tearful Loud-Pressured) Motor (Oiilqi-Mwqhnowef-Ffdw-Other) Normal, Not formally assessed Insight (Siwi-Qqag-Hxkt/Limited) fair/limited Judgement (Plkz-Nzjd-Uaye/Limited) poor/limited Impulse Control (Adequate-Impaired) adequate during assessment Memory (Wmnznepcd-Bncmec-Zmuemk, intact, not formally assessed Impaired-Intact) Concentration (Intact-Impaired) intact Attention (Intact-Impaired) intact Behavior (Appropriate-Inappropriate) appropriate Additional Comment Patient endorses she feels embarrassed and she has never done this before. Risk Assessment Suicidal Ideation (Plan) Yes Homicidal Ideation (Plan) No Comment Patient denies HI. Patient endorses SI since 06/23/21 after a hurtful voicemail from her walking dragline operator. Patient prepared plan to take medication a drink a bottle of wine. Patient informed former of this plan. Patient took medication and drank a bottle of wine last evening when she was home alone and former called 911. Patient denies hx of SI and denies current SI but patient' s current situation is the same if she returns home. Intervention Intervention INSURANCE OFFICE SUPERVISOR enters room to meet with patient, patient's former Jacinto is present and patient prefers to speak with INSURANCE OFFICE SUPERVISOR alone. Patient endorses that she found out about her 's infidelity a year ago and he continue to deny it, patient endorses she hired a PI who found evidence of 's affair. Patient filed for divorce and is expressing stresses of paying for walking dragline operator . Patient endorses being exhausted and overwhelmed caring for her children, and protecting them from martial issues. Patient endorses she has lost aprox 40 lbs over the last year and a half and endorses medical issues and difficulty caring for self. Patient endorses she has never had SI before and just graduated from sessions with previous provider. Patient is agreeable to see MH provider Dr. Garrett again. Patient provides consent for INSURANCE OFFICE SUPERVISOR to speak with MH provider. INSURANCE OFFICE SUPERVISOR discusses voluntary inpatient behavioral health hospitalization and the possible option of safety planning with patient. Patient cannot identify current supports and is not wanting people to know about her presentation to the ED. Patient requests former to enter room to discuss. It is the opinion of this INSURANCE OFFICE SUPERVISOR that patient is appropriate and would benefit from voluntary behavioral health inpatient hospitalization for stabilization and treatment. INSURANCE OFFICE SUPERVISOR reviews the above with ED provider Dr. Mejía who indicates agreement and understanding. Plan RA Plan INSURANCE OFFICE SUPERVISOR to seek voluntary behavioral health inpatient bed. SEAN Humphreys
--- NOTE | 2021-06-28 13:46 | CM.SWNOTE ---
Addendum entered by Suze Leroy 06/28/21 19:27: INFUSION NURSE Note Patient was accepted at [facility] unit, was transported via EMS at aprox 1715. SEAN Humphreys Original Note: INFUSION NURSE Note INFUSION NURSE contacts [facility] for voluntary inpatient bed status. It is reported that [place] and [facility] are at capacity. It is reported that [facility] has 4 beds, [facility] has 7 beds, [facility] has 1 female bed and [facility] has 3 beds. INFUSION NURSE calls [facility] intake, it is reported that they have beds, INFUSION NURSE reviews patient faxes clinicals for review. INFUSION NURSE calls [facility] intake, it is reported that they have one bed later this evening, INFUSION NURSE reviews patient and faxes clinicals. INFUSION NURSE calls patient's previous MH provider Dr. Garrett with patient consent, INFUSION NURSE leaves requesting return call. Plan: INFUSION NURSE to continue to seek voluntary inpatient bed for patient. SEAN Humphreys
--- NOTE | 2021-06-28 13:51 | PC.NURSE ---
Pt now medically cleared. Dr. Mejía ok'd IV / monitor discontinue.
[2021-06-28 17:32] LABS: Creatine Kinase 44 U/L (30-135); Magnesium 2.1 mg/dL (1.6-2.3)
[2021-06-28 17:44] LABS: Troponin I < 0.012 ng/mL (0.01-0.034)
[2021-06-28 18:04] LABS: TSH w/ Reflex to FT4 4.76 uIU/mL (0.47-4.68)
[2021-06-28 18:31] LABS: Free T4, Direct Thyroxine 1.28 ng/dL (0.78-2.19)
== END 2021-06-28 19:17 ==
PROVIDERS: Emergency Medicine; Emergency Provider Emergency Medicine; Family Provider Family Medicine; PCP Family Medicine
DX: R45.851 Suicidal ideations (principal); F10.129 Alcohol abuse with intoxication, unspecified; Y90.6 Blood alcohol level of 120-199 mg/100 ml; T39.1X2A Poisoning by 4-Aminophenol derivatives, intentional self-harm, initial encounter; Z20.822 Contact with and (suspected) exposure to COVID-19
CPT/HCPCS: 36415; 80053; 80076; 80305; 80320; 80329; 81001; 82550; 83605; 83735; 84439; 84443; 84484; 85025; 87635; 93005; 93010; 96360; 96361; 99285; C9803; G0480

== ENCOUNTER → 2022-07-23 11:07 | Outpatient (CLI) | payer OTHER, SELFPAY | PROVIDERS: Family Provider Family Medicine; Visit Provider Nurse Practitioner Family | DX: J02.9 Acute pharyngitis, unspecified (principal) | CPT/HCPCS: 87070 ==

== ENCOUNTER 2023-01-23 14:46 | Emergency (ER) | payer OTHER, SELFPAY ==
[2023-01-23] VITALS (8 sets, daily range): BP systolic 119–149; BP diastolic 71–96; PULSE 48–101; RESP 19–40; TEMP 36.9; O2SAT 100; BMI 22.9
--- NOTE | 2023-01-23 14:58 | DI.RAD.S_ITS ---
PROCEDURE: XR CHEST 1V INDICATIONS: chest pain TECHNIQUE: One view of the chest was acquired. COMPARISON: [facility], , CHEST 2 VIEW, 12/24/2012, 10:58. FINDINGS: Surgical changes and devices: None. Lungs and pleura: Lungs are clear. No pleural effusions or pneumothorax. Mediastinum: Mediastinal contours appear normal. Heart size is normal. Bones and chest wall: No suspicious bony lesions. Overlying soft tissues appear unremarkable. IMPRESSION: No acute pulmonary process. Dictated by: Linette Witt M.D. on 01/23/2023 at 15:24 Approved by: Linette Witt M.D. on 01/23/2023 at 15:24
[2023-01-23 15:13] LABS: Add Manual Diff / Slide Review NO; Basophils Absolute Auto 0 /uL (0-100); Basophils Percent Auto 0.5 % (0-2); Eosinophils Absolute Auto 100 /uL (0-450); Eosinophils Percent Auto 1.5 % (2-4); Hemoglobin 13.4 g/dL (12.0-16.0); Lymphocytes Absolute Auto 1400 /uL (1100-4500); Lymphocytes Percent Auto 26.9 % (25-40); Mean Corpuscular HGB Conc 33.5 % (30-36); Mean Corpuscular Hemoglobin 30.4 PG (26-34); Mean Corpuscular Volume 90.9 fL (80-100); Monocytes Absolute Auto 500 /uL (0-900); Monocytes Percent Auto 9.7 % (3-14); Neutrophils Absolute Auto 3200 /uL (1500-7000); Neutrophils Percent Auto 61.4 % (50-75); Platelet Count 276 X10^3/uL (150-400); Red Cell Distribution Width 13.8 % (11.6-14.8); White Blood Cell Count 5.1 X10^3/uL (4.5-11.0)
[2023-01-23 15:21] LABS: INR 0.9 (0.9-1.3); Prothrombin Time 10.2 SECONDS (10.1-12.7)
[2023-01-23 15:24] LABS: PTT Partial Thromboplastin Tim 30 SECONDS (26-36)
[2023-01-23 15:29] LABS: Alanine Aminotransferase 20 IU/L (<35); Albumin Globulin Ratio 1.3 (1.0-2.8); Alkaline Phosphatase 61 U/L (38-126); Aspartate Aminotransferase 31 IU/L (14-36); BUN Creatinine Ratio 26.9 (6-22); Blood Urea Nitrogen 14 mg/dL (7-17); Calcium 9.3 mg/dL (8.4-10.2); Carbon Dioxide 27 mmol/L (22-32); Chloride 101 mmol/L (98-107); Creatine Kinase 80 U/L (30-135); Estimated Glomerular Filt Rate > 60 mL/min (>60); Globulin 3.9 g/dL (1.7-4.1); Glucose 101 mg/dL (70-100); HEMOLYSIS 29 (0-50); Lipase 193 U/L (23-300); Sodium 138 mmol/L (137-145); Total Protein 8.9 g/dL (6.3-8.2)
[2023-01-23 15:41] LABS: Troponin I < 0.012 ng/mL (0.01-0.034)
[2023-01-23 15:55] LABS: D Dimer 229 ng/ml (<500)
--- NOTE | 2023-01-23 16:06 | PC.NURSE ---
pt states she took advil right before coming in here. spoke with provider, order to hold aspirin given.
--- NOTE | 2023-01-23 16:20 | PC.NURSE ---
Pt states she has had chest pain since sunday but it has been well controlled with advil. she does state on sunday she was painting a ceiling. today their was a sudden increase in her chest pain which brought her into the ER
[2023-01-23] MEDS: KETOROLAC 30 MG/ML VIAL 15 MG IV (16:32)
--- NOTE | 2023-01-23 17:11 | ED_ITS ---
HPI - Chest Pain <Rosa Elena Benoit PA-C - Last Filed: 01/23/23 20:35> General Chief Complaint: Chest Pain Stated Complaint: left Chest pain Time Seen by Provider: 01/23/23 16:47 Source: patient Mode of arrival: Ambulatory History of Present Illness HPI narrative: 47-year-old female with past medical history anxiety, ADD, morphea presents to the ED with 3 days of left-sided chest pain. Patient states that she was doing some house painting with rollers 3 days ago, following which she started experiencing left-sided chest pain. She denies fever, chills, shortness of breath, nausea, vomiting, abdominal pain, lightheadedness, dizziness, syncope. Pain does not radiate. Pain is aggravated by deep breathing. Pain is also aggravated by movements. Related Data Home Medications Medication Instructions Recorded Confirmed folic acid 1 mg tablet 06/28/21 08/06/22 famotidine 40 mg tablet 40 mg PO BEDTIME 07/15/21 08/06/22 methotrexate sodium 2.5 mg tablet 7.5 mg PO QWEEK 07/20/21 08/06/22 Previous Rx's Medication Instructions Recorded hydroxyzine HCl 25 mg tablet 25 - 50 mg PO QID PRN anxiety #30 07/15/21 tabs alprazolam 0.25 mg tablet 0.125 mg PO Q6H PRN anxiety #5 tabs 07/20/21 escitalopram oxalate 5 mg tablet 5 mg PO DAILY #30 tabs 08/16/21 methylphenidate HCl 5 mg tablet 10 mg PO BID Attention deficit 08/16/21 #120 tabs Allergies Allergy/AdvReac Type Severity Reaction Status Date / Time No Known Drug Allergies Allergy Verified 01/23/23 14:58 Review of Systems <Rosa Elena Benoit PA-C - Last Filed: 01/23/23 20:35> Review of Systems ROS Unobtainable: All systems reviewed & are unremarkable except as noted in HPI and below Constitutional Constitutional: Denies chills, Denies fatigue, Denies fever(s), Denies frequent falls, Denies lethargy and Denies weakness Eyes Eyes: Denies change in vision, Denies eye discharge, Denies irritation and Denie s loss of vision ENT Ears, Nose, Mouth, and Throat: Denies change in voice, Denies dizziness, Denies neck pain, Denies sore throat and Denies throat swelling Cardiovascular Cardiovascular: Reports chest pain, Denies irregular heart rhythm, Denies lightheadedness, Denies palpitations, Denies dyspnea, Denies dyspnea on exertion and Denies orthopnea Respiratory Respiratory: Denies cough, Denies dyspnea, Denies dyspnea on exertion and Denies wheezing Gastrointestinal Gastrointestinal: Denies abdominal pain, Denies change in bowel habits, Denies diarrhea, Denies nausea and Denies vomiting Genitourinary Genitourinary: Denies hematuria, Denies flank pain, Denies urinary incontinence and Denies urinary urgency Musculoskeletal Musculoskeletal: Denies back pain, Denies muscle weakness, Denies neck pain, D enies numbness and Denies tingling Integumentary/Breasts Skin/Breast: Denies pruritus, Denies erythema, Denies rash and Denies wounds Neurologic Neurologic: Denies behavioral changes, Denies confusion, Denies dizziness, Denies frequent falls, Denies loss of vision, Denies numbness, Denies tingling and Denies weakness Psychiatric Psychiatric: Denies anxiety, Denies behavioral changes, Denies confusion, Denies depression, Denies homicidal ideation and Denies suicidal ideation Endocrine Endocrine: Denies fatigue, Denies flushing and Denies palpitations Hematologic/Lymphatic Hematologic/Lymphatic: Denies easy bruising Allergic/Immunologic Allergic/Immunologic: Denies urticaria, Denies throat swelling and Denies wheezing Patient History <Rosa Elena Benoit PA-C - Last Filed: 01/23/23 20:35> Medical History Abnormal glandular Pap smear of vagina (~2004) Attention deficit disorder without hyperactivity (10/12/11) Back stiffness Carpal tunnel syndrome, left De Quervain's tenosynovitis, right Generalized morphea Scleroderma Subdural hemorrhage (12/17/12) Surgical History History of oral surgery Family History Father Cancer Grandmother Lung cancer Mother Osteoporosis Social History Smoking Status: Never smoker alcohol intake: current substance use type: does not use Smoking Status: Never smoker alcohol intake frequency: 0-2 drinks per day Substance Use Type: does not use Exam <Rosa Elena Benoit PA-C - Last Filed: 01/23/23 20:35> Narrative Exam Narrative: Const General:?cooperative, healthy appearing and comfortable [facility] Head:?normal to inspection Ears:?hearing grossly normal bilaterally Nose:?external nose normal Face and sinus:?normal facial exam and sinuses nontender Mouth:?oral mucosae normal Throat:?posterior oropharynx normal Eyes General:?appearance normal, both eyes and all related structures Neck Neck:?normal visual inspection and no lymphadenopathy noted Resp Effort & Inspection:?normal respiratory effort Auscultation:?clear to auscultation bilaterally Cardio Rate:?regular rate Rhythm:?regular rhythm No chest wall tenderness Neuro General:?patient alert, patient awake and patient oriented x3 Initial Vital Signs Initial Vital Signs: Vital Signs Temperature 98.5 F 01/23/23 14:54 Pulse Rate 101 H 01/23/23 14:54 Respiratory Rate 22 01/23/23 14:54 Blood Pressure 149/96 H 01/23/23 14:54 Pulse Oximetry 100 01/23/23 14:54 Oxygen Delivery Method Room Air 01/23/23 14:54 <Romeo Astorga MD - Last Filed: 02/04/23 20:59> Initial Vital Signs Initial Vital Signs: Vital Signs Temperature 98.5 F 01/23/23 14:54 Pulse Rate 101 H 01/23/23 14:54 Respiratory Rate 22 01/23/23 14:54 Blood Pressure 149/96 H 01/23/23 14:54 Pulse Oximetry 100 01/23/23 14:54 Oxygen Delivery Method Room Air 01/23/23 14:54 Course <Rosa Elena Benoit PA-C - Last Filed: 01/23/23 20:35> Orders Ordered: Discontinued Medications Aspirin (Aspirin 81 Mg Chew Tab) 324 mg PO NOW ONE Stop: 01/23/23 14:59 Last Admin: 01/23/23 16:06 Dose: Not Given Documented By: NR Ketorolac Tromethamine (Ketorolac 30 Mg/Ml Vial) 15 mg IV NOW ONE Stop: 01/23/23 16:26 Last Admin: 01/23/23 16:32 Dose: 15 mg Documented By: SAVAGE Lidocaine (Lidocaine Patch 1 Each Adh..Patch) 1 each TOP NOW ONE Stop: 01/23/23 18:08 Last Admin: 01/23/23 18:12 Dose: 1 each Documented By: NR Vital Signs Vital signs: Vital Signs - 8 hr 01/23/23 14:54 01/23/23 15:11 01/23/23 15:19 Temperature 98.5 F Pulse Rate 101 H 85 81 Respiratory Rate 22 19 Blood Pressure 149/96 H Pulse Oximetry 100 100 100 Oxygen Delivery Method Room Air 01/23/23 15:19 01/23/23 15:30 01/23/23 15:30 Temperature Pulse Rate 64 Respiratory Rate 21 Blood Pressure 140/79 125/71 Pulse Oximetry 100 Oxygen Delivery Method 01/23/23 16:00 01/23/23 16:00 01/23/23 17:13 Temperature Pulse Rate 58 L Respiratory Rate 40 H Blood Pressure 124/78 Pulse Oximetry 100 100 Oxygen Delivery Method 01/23/23 17:59 01/23/23 18:00 01/23/23 18:00 Temperature Pulse Rate 48 L 66 Respiratory Rate Blood Pressure 119/73 Pulse Oximetry 100 100 Oxygen Delivery Method <Romeo Astorga MD - Last Filed: 02/04/23 20:59> Orders Ordered: Discontinued Medications Aspirin (Aspirin 81 Mg Chew Tab) 324 mg PO NOW ONE Stop: 01/23/23 14:59 Last Admin: 01/23/23 16:06 Dose: Not Given Documented By: SAVAGE Ketorolac Tromethamine (Ketorolac 30 Mg/Ml Vial) 15 mg IV NOW ONE Stop: 01/23/23 16:26 Last Admin: 01/23/23 16:32 Dose: 15 mg Documented By: SAVAGE Lidocaine (Lidocaine Patch 1 Each Adh..Patch) 1 each TOP NOW ONE Stop: 01/23/23 18:08 Last Admin: 01/23/23 18:12 Dose: 1 each Documented By: SAVAGE Vital Signs Vital signs: Vital Signs - 8 hr 01/23/23 14:54 01/23/23 15:11 01/23/23 15:19 Temperature 98.5 F Pulse Rate 101 H 85 81 Respiratory Rate 22 19 Blood Pressure 149/96 H Pulse Oximetry 100 100 100 Oxygen Delivery Method Room Air 01/23/23 15:19 01/23/23 15:30 01/23/23 15:30 Temperature Pulse Rate 64 Respiratory Rate 21 Blood Pressure 140/79 125/71 Pulse Oximetry 100 Oxygen Delivery Method 01/23/23 16:00 01/23/23 16:00 01/23/23 17:13 Temperature Pulse Rate 58 L Respiratory Rate 40 H Blood Pressure 124/78 Pulse Oximetry 100 100 Oxygen Delivery Method 01/23/23 17:59 01/23/23 18:00 01/23/23 18:00 Temperature Pulse Rate 48 L 66 Respiratory Rate Blood Pressure 119/73 Pulse Oximetry 100 100 Oxygen Delivery Method MDM - Chest Pain <Rosa Elena Benoit PA-C - Last Filed: 01/23/23 20:35> Lab Data 01/23/23 15:00 01/23/23 15:00 Labs: Lab Results 01/23/23 01/23/23 01/23/23 Range/Units 15:00 15:00 15:00 WBC 5.1 (4.5-11.0) X10^3/uL RBC 4.40 (4.0-5.2) X10^6/uL Hgb 13.4 (12.0-16.0) g/dL Hct 40.0 (36-46) % MCV 90.9 (80-100) fL MCH 30.4 (26-34) PG MCHC 33.5 (30-36) % RDW 13.8 (11.6-14.8) % Plt Count 276 (150-400) X10^3/uL Neut % (Auto) 61.4 (50-75) % Lymph % (Auto) 26.9 (25-40) % [place] % (Auto) 9.7 (3-14) % Eos % (Auto) 1.5 L (2-4) % Baso % (Auto) 0.5 (0-2) % Neut # (Auto) 3200 (0431-5469) /uL Lymph # (Auto) 1400 (7585-8917) /uL [place] # (Auto) 500 (0-900) /uL Eos # (Auto) 100 (0-450) /uL Baso # (Auto) 0 (0-100) /uL PT 10.2 (10.1-12.7) SECONDS INR 0.9 (0.9-1.3) APTT 30 (26-36) SECONDS D-Dimer (<500) ng/ml Sodium 138 (137-145) mmol/L Potassium 4.0 (3.4-5.1) mmol/L Chloride 101 (98-107) mmol/L Carbon Dioxide 27 (22-32) mmol/L BUN 14 (7-17) mg/dL Creatinine 0.52 (0.52-1.04) mg/dL Estimated GFR > 60 (>60) mL/min BUN/Creatinine Ratio 26.9 H (6-22) Glucose 101 H (70-100) mg/dL Calcium 9.3 (8.4-10.2) mg/dL Magnesium 2.0 (1.6-2.3) mg/dL Total Bilirubin 1.0 (0.2-1.3) mg/dL AST 31 (14-36) IU/L ALT 20 (<35) IU/L Alkaline Phosphatase 61 (38-126) U/L Total Creatine Kinase 80 (30-135) U/L CK-MB (CK-2) TNP CK-MB (CK-2) Rel Index TNP Troponin I < 0.012 (0.01-0.034) ng/mL Total Protein 8.9 H (6.3-8.2) g/dL Albumin 5.0 (3.5-5.0) g/dL Globulin 3.9 (1.7-4.1) g/dL Albumin/Globulin Ratio 1.3 (1.0-2.8) Lipase 193 (23-300) U/L 01/23/23 01/23/23 Range/Units 15:00 16:57 WBC (4.5-11.0) X10^3/uL RBC (4.0-5.2) X10^6/uL Hgb (12.0-16.0) g/dL Hct (36-46) % MCV (80-100) fL MCH (26-34) PG MCHC (30-36) % RDW (11.6-14.8) % Plt Count (150-400) X10^3/uL Neut % (Auto) (50-75) % Lymph % (Auto) (25-40) % [place] % (Auto) (3-14) % Eos % (Auto) (2-4) % Baso % (Auto) (0-2) % Neut # (Auto) (4332-6274) /uL Lymph # (Auto) (5136-8948) /uL [place] # (Auto) (0-900) /uL Eos # (Auto) (0-450) /uL Baso # (Auto) (0-100) /uL PT (10.1-12.7) SECONDS INR (0.9-1.3) APTT (26-36) SECONDS D-Dimer 229 (<500) ng/ml Sodium (137-145) mmol/L Potassium (3.4-5.1) mmol/L Chloride (98-107) mmol/L Carbon Dioxide (22-32) mmol/L BUN (7-17) mg/dL Creatinine (0.52-1.04) mg/dL Estimated GFR (>60) mL/min BUN/Creatinine Ratio (6-22) Glucose (70-100) mg/dL Calcium (8.4-10.2) mg/dL Magnesium (1.6-2.3) mg/dL Total Bilirubin (0.2-1.3) mg/dL AST (14-36) IU/L ALT (<35) IU/L Alkaline Phosphatase (38-126) U/L Total Creatine Kinase 65 (30-135) U/L CK-MB (CK-2) TNP CK-MB (CK-2) Rel Index TNP Troponin I < 0.012 (0.01-0.034) ng/mL Total Protein (6.3-8.2) g/dL Albumin (3.5-5.0) g/dL Globulin (1.7-4.1) g/dL Albumin/Globulin Ratio (1.0-2.8) Lipase (23-300) U/L [facility] Narrative Medical decision making narrative: 47-year-old female with past medical history anxiety, ADD, morphea presents to the ED with 3 days of left-sided chest pain. Concern for ACS versus CHF versus PE versus pneumonia versus other. Obtained chest x-ray, EKG, labs, troponin, BNP, D-dimer. Workup was largely unremarkable. EKG with normal sinus rhythm, nonspecific ST abnormality, no axis deviation. Repeat troponin was also within normal limits. Patient's symptoms more consistent with a musculoskeletal etiology. Patient's symptoms improved with Toradol. ED return precautions were discussed with patient. Patient verbalized understanding. Medical records reviewed: Yes <Romeo Astorga MD - Last Filed: 02/04/23 20:59> Lab Data Labs: Lab Results 01/23/23 01/23/23 01/23/23 Range/Units 15:00 15:00 15:00 WBC 5.1 (4.5-11.0) X10^3/uL RBC 4.40 (4.0-5.2) X10^6/uL Hgb 13.4 (12.0-16.0) g/dL Hct 40.0 (36-46) % MCV 90.9 (80-100) fL MCH 30.4 (26-34) PG MCHC 33.5 (30-36) % RDW 13.8 (11.6-14.8) % Plt Count 276 (150-400) X10^3/uL Neut % (Auto) 61.4 (50-75) % Lymph % (Auto) 26.9 (25-40) % [place] % (Auto) 9.7 (3-14) % Eos % (Auto) 1.5 L (2-4) % Baso % (Auto) 0.5 (0-2) % Neut # (Auto) 3200 (2374-6907) /uL Lymph # (Auto) 1400 (7983-1391) /uL [place] # (Auto) 500 (0-900) /uL Eos # (Auto) 100 (0-450) /uL Baso # (Auto) 0 (0-100) /uL PT 10.2 (10.1-12.7) SECONDS INR 0.9 (0.9-1.3) APTT 30 (26-36) SECONDS D-Dimer (<500) ng/ml Sodium 138 (137-145) mmol/L Potassium 4.0 (3.4-5.1) mmol/L Chloride 101 (98-107) mmol/L Carbon Dioxide 27 (22-32) mmol/L BUN 14 (7-17) mg/dL Creatinine 0.52 (0.52-1.04) mg/dL Estimated GFR > 60 (>60) mL/min BUN/Creatinine Ratio 26.9 H (6-22) Glucose 101 H (70-100) mg/dL Calcium 9.3 (8.4-10.2) mg/dL Magnesium 2.0 (1.6-2.3) mg/dL Total Bilirubin 1.0 (0.2-1.3) mg/dL AST 31 (14-36) IU/L ALT 20 (<35) IU/L Alkaline Phosphatase 61 (38-126) U/L Total Creatine Kinase 80 (30-135) U/L CK-MB (CK-2) TNP CK-MB (CK-2) Rel Index TNP Troponin I < 0.012 (0.01-0.034) ng/mL Total Protein 8.9 H (6.3-8.2) g/dL Albumin 5.0 (3.5-5.0) g/dL Globulin 3.9 (1.7-4.1) g/dL Albumin/Globulin Ratio 1.3 (1.0-2.8) Lipase 193 (23-300) U/L 01/23/23 01/23/23 Range/Units 15:00 16:57 WBC (4.5-11.0) X10^3/uL RBC (4.0-5.2) X10^6/uL Hgb (12.0-16.0) g/dL Hct (36-46) % MCV (80-100) fL MCH (26-34) PG MCHC (30-36) % RDW (11.6-14.8) % Plt Count (150-400) X10^3/uL Neut % (Auto) (50-75) % Lymph % (Auto) (25-40) % [place] % (Auto) (3-14) % Eos % (Auto) (2-4) % Baso % (Auto) (0-2) % Neut # (Auto) (1009-0638) /uL Lymph # (Auto) (9351-0057) /uL [place] # (Auto) (0-900) /uL Eos # (Auto) (0-450) /uL Baso # (Auto) (0-100) /uL PT (10.1-12.7) SECONDS INR (0.9-1.3) APTT (26-36) SECONDS D-Dimer 229 (<500) ng/ml Sodium (137-145) mmol/L Potassium (3.4-5.1) mmol/L Chloride (98-107) mmol/L Carbon Dioxide (22-32) mmol/L BUN (7-17) mg/dL Creatinine (0.52-1.04) mg/dL Estimated GFR (>60) mL/min BUN/Creatinine Ratio (6-22) Glucose (70-100) mg/dL Calcium (8.4-10.2) mg/dL Magnesium (1.6-2.3) mg/dL Total Bilirubin (0.2-1.3) mg/dL AST (14-36) IU/L ALT (<35) IU/L Alkaline Phosphatase (38-126) U/L Total Creatine Kinase 65 (30-135) U/L CK-MB (CK-2) TNP CK-MB (CK-2) Rel Index TNP Troponin I < 0.012 (0.01-0.034) ng/mL Total Protein (6.3-8.2) g/dL Albumin (3.5-5.0) g/dL Globulin (1.7-4.1) g/dL Albumin/Globulin Ratio (1.0-2.8) Lipase (23-300) U/L Discharge Plan Departure Patient Disposition: Home Clinical Impression: Chest pain Instructions: DI for Atypical Chest Pain Activity Restrictions/Additional Instructions: You were evaluated in the ED today for left-sided chest pain. Your chest x-ray, EKG, labs, troponin, D-dimer were all normal. Your symptoms are most likely due to a musculoskeletal sprain/strain from overuse. Return to the ED if you experience worsening chest pain, shortness of breath. Please follow-up with your PCP as soon as possible. 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 methotrexate sodium 2.5 mg tablet 7.5 mg PO QWEEK Hold Instructions: temporary Patient Comments: Take 3 tablets (7.5 mg) by mouth every 7 days. alprazolam 0.25 mg tablet 0.125 mg PO Q6H PRN (Reason: anxiety) Qty: 5 0RF folic acid 1 mg tablet Patient Comments: Take 1 tablet (1 mg) by mouth daily. Referrals: Fabiola Mccauley PA-C [Primary Care Provider] - Stand Alone Forms: Patient Portal/API <Romeo Astorga MD - Last Filed: 02/04/23 20:59> Cosign ED Attending Cosignature Attestation: I was immediately available in the department for consultation. This documentation has been reviewed and I agree with assessment and plan. Supervised by Romeo Astorga MD
[2023-01-23 17:14] LABS: Creatine Kinase 65 U/L (30-135)
[2023-01-23 17:27] LABS: Troponin I < 0.012 ng/mL (0.01-0.034)
[2023-01-23] MEDS: LIDOCAINE PATCH 1 EACH ADH..PATCH TOP (18:12)
== END 2023-01-23 18:16 | disposition home or self-care (01) ==
PROVIDERS: Emergency Medicine; Emergency Provider Student in an Organized Health Care Education/Training Program; Family Provider Family Medicine; PCP Physician Assistant
DX: R07.9 Chest pain, unspecified (principal)
CPT/HCPCS: 36415; 71045; 80053; 82550; 83690; 83735; 84484; 85025; 85379; 85610; 85730; 93005; 93010; 96374; 99284; J1885

== ENCOUNTER → 2023-06-20 13:24 | Outpatient (CLI) | payer OTHER, SELFPAY ==
[2023-06-20 13:51] LABS: Appearance Urine UA CLEAR; Bilirubin Urine UA NEGATIVE (NEGATIVE); Color Urine UA YELLOW; Glucose Urine UA NEGATIVE (Negative); Ketones Urine UA NEGATIVE (NEGATIVE); Leukocyte Esterase Urine UA NEGATIVE (NEGATIVE); Nitrite Urine UA NEGATIVE (Negative); Occult Blood Urine UA NEGATIVE (Negative); Protein Urine UA NEGATIVE (Negative); Urobilinogen Urine UA 0.2 E.U./dL (0.2); pH Urine UA 5.5 (4.5-8.0)
[2023-06-20 13:54] LABS: Bacteria Urine None Seen; Culture Indicated Urine Cult Not Indicated; RBC Urine None Seen (0-5/HPF); Squamous Epithelial Cell Urine None Seen (0-5/HPF); Urine Comments Microscopic Normal; WBC Urine None Seen (0-5/HPF)
[2023-06-20 14:24] LABS: C-Reactive Protein Quant < 0.5 mg/dL (<1.0); Creatine Kinase 68 U/L (30-135)
[2023-06-20 14:27] LABS: Erythrocyte Sedimentation Rate 1 MM/HR (0-20)
[2023-06-21 05:13] LABS: Complement C3 120 mg/dL (82-167)
[2023-06-22 18:58] LABS: ANA Screen, IFA Negative (.)
== END ==
PROVIDERS: Family Provider Family Medicine; PCP Physician Assistant; Referring Provider Physician Assistant; Visit Provider Physician Assistant
DX: L94.0 Localized scleroderma [morphea] (principal); M35.9 Systemic involvement of connective tissue, unspecified; N95.1 Menopausal and female climacteric states
CPT/HCPCS: 36415; 81001; 82550; 84270; 85651; 86038; 86140; 86160

== ENCOUNTER → 2024-01-25 13:16 | Outpatient (CLI) | payer OTHER, SELFPAY ==
[2024-01-25 14:21] LABS: Add Manual Diff / Slide Review NO; Basophils Absolute Auto 0 /uL (0-100); Basophils Percent Auto 0.7 % (0-2); Eosinophils Absolute Auto 0 /uL (0-450); Eosinophils Percent Auto 0.7 % (2-4); Hematocrit 37.9 % (36-46); Lymphocytes Absolute Auto 1200 /uL (1100-4500); Lymphocytes Percent Auto 25.8 % (25-40); Mean Corpuscular HGB Conc 34.2 % (30-36); Mean Corpuscular Hemoglobin 31.3 PG (26-34); Mean Corpuscular Volume 91.4 fL (80-100); Monocytes Absolute Auto 400 /uL (0-900); Monocytes Percent Auto 7.6 % (3-14); Neutrophils Absolute Auto 3100 /uL (1500-7000); Neutrophils Percent Auto 65.2 % (50-75); Platelet Count 277 X10^3/uL (150-400); Red Blood Cell Count 4.14 X10^6/uL (4.0-5.2); Red Cell Distribution Width 13.6 % (11.6-14.8); White Blood Cell Count 4.8 X10^3/uL (4.5-11.0)
[2024-01-25 15:04] LABS: Alanine Aminotransferase 16 IU/L (<35); Albumin 4.4 g/dL (3.5-5.0); Albumin Globulin Ratio 1.5 (1.0-2.8); Alkaline Phosphatase 44 U/L (38-126); Aspartate Aminotransferase 25 IU/L (14-36); BUN Creatinine Ratio 13.6 (6-22); Blood Urea Nitrogen 9 mg/dL (7-17); Calcium 9.8 mg/dL (8.4-10.2); Carbon Dioxide 29 mmol/L (22-32); Chloride 105 mmol/L (98-107); Estimated Glomerular Filt Rate > 60 mL/min (>60); Globulin 2.9 g/dL (1.7-4.1); Glucose 82 mg/dL (70-100); HEMOLYSIS < 15 (0-50); Potassium 4.4 mmol/L (3.4-5.1); Sodium 139 mmol/L (137-145); Total Protein 7.3 g/dL (6.3-8.2)
== END ==
PROVIDERS: Family Provider Family Medicine; PCP Physician Assistant; Referring Provider Internal Medicine Rheumatology; Visit Provider Internal Medicine Rheumatology
DX: L94.0 Localized scleroderma [morphea] (principal)
CPT/HCPCS: 36415; 80053; 85025